=== PATIENT | female | born 1970 | race African-American/Black ===

== ENCOUNTER 2019-01-16 00:18 | Inpatient (IN) | payer OTHER ==
[2019-01-16] VITALS (8 sets, daily range): BP systolic 96–144; BP diastolic 47–90
[~2019-01-16] VITALS: Ht 162.6 cm; Wt 122.9 kg
[2019-01-16] MEDS ORDERED: HALLS3.2 MG (00:33)
[2019-01-16] MEDS ORDERED: COUGH AND COLD (00:33)
[2019-01-16 01:31] LABS: BASOPHILS 0.3 % (0.0-2.0); EOSINOPHILS 0.1 % (0.0-3.0); HEMATOCRIT 38.3 % (37.0-47.0); HEMOGLOBIN 12.7 gm/dL (12.0-15.0); LYMPHOCYTES 6.1 % (24.0-44.0); MCH 27.8 pg (26.0-34.0); MCHC 33.1 g/dL (28.0-37.0); MCV 83.8 fL (80.0-100.0); MONOCYTES 4.5 % (1.0-8.0); PLATELET COUNT 144 thou/uL (150-400); RBC 4.58 mil/uL (4.20-5.00); RDW 15.3 % (10.5-14.5); WBC 5.7 thou/uL (4.0-11.0)
[2019-01-16 01:53] LABS: CALCIUM 8.1 mg/dL (8.5-10.1); CREATININE 1.5 mg/dL (0.6-1.0); POTASSIUM 3.8 mmol/L (3.5-5.1)
[2019-01-16 01:59] LABS: ALBUMIN 3.2 g/dL (3.4-5.0); DIRECT BILIRUBIN 0.1 mg/dL (<0.1-0.3); TOTAL BILIRUBIN 0.4 mg/dL (<0.1-1.0); TOTAL PROTEIN 6.7 g/dL (6.4-8.2)
[2019-01-16 02:52] LABS: URINE BILIRUBIN NEGATIVE (Negative); URINE BLOOD TRACE (Negative); URINE CLARITY CLEAR; URINE COLOR YELLOW; URINE GLUCOSE-RANDOM* NEGATIVE (Negative); URINE KETONES NEGATIVE (Negative); URINE NITRITE-REFLEX NEGATIVE (Negative); URINE PROTEIN (DIPSTICK) NEGATIVE (Negative); URINE UROBILINOGEN 0.2 E.U./dl (0.2-1.0)
[2019-01-16 02:53] LABS: URINE LEUKOCYTES-REFLEX 1+ (Negative)
[2019-01-16 02:58] LABS: BACTERIA-REFLEX None Seen /HPF (None Seen); CASTS None Seen /LPF (None Seen); CRYSTALS None Seen /LPF (None Seen); MUCUS None Seen strn/LPF (None Seen); SQUAMOUS 0-3 Few /LPF (0-3); URINE RBC 0-2 Rare /HPF (0-2); URINE WBC-REFLEX 6-15 Few /HPF (0-5)
--- NOTE | 2019-01-16 03:15 | NUR ---
Pt. arrived to the unit from the emergency room accompanied by staff and spouse via stretcher. Admission assessment and history is completed. She c/o generalized pain, but refused po tramadol when offered. Up to the bathroom with stand by assistance.
--- NOTE | 2019-01-16 18:39 | NUR ---
PT A&OX4, VSS, LUNG RHYTHM REG WITH WHEEZES, NO DISTRESS, NO C/O OF PAIN AT THIS TIME. PT ON 3L OF O2. WILL CONTINUE TO MONITOR.
[2019-01-17 03:39] VITALS: BP 119/79
--- NOTE | 2019-01-17 04:12 | NUR ---
Pt. rested quietly at intervals during the night when checked on during frequent rounds. She c/o a headache and po pain med given (see emar) with some relief of pain. No c/o shortness of air.
[2019-01-17 05:05] LABS: CALCIUM 8.2 mg/dL (8.5-10.1); CREATININE 1.3 mg/dL (0.6-1.0); POTASSIUM 4.4 mmol/L (3.5-5.1)
[2019-01-17 08:01] VITALS: BP 118/65
[2019-01-17 14:18] VITALS: BP 115/75
--- NOTE | 2019-01-17 17:03 | NUR ---
PT A&OX4, VSS, NO SIGNS OF DISTRESS OR C/O SOA. PT HAS SHOWERED ON HER OWN, CALM AND COOPERATIVE. FAMILY HAS VISITED AND PT MORE INTERACTIVE. C/O OF MIGRAINE IN EARLY AM AND HAS BEEN RELIEVED WITH MEDICATION. WILL CONTINUE TO MONITOR.
[2019-01-17 19:40] VITALS: BP 137/84
--- NOTE | 2019-01-18 01:57 | NUR ---
Assumed care at 1845. Pt resting in bed with at bedside. She stated that she has been experiencing vaginal itching everytime she urinates. Notified she [employer] who suggested a onetime dose of fluconazole and to monitor. No identified needs at the moment. Will continue to monitor.
[2019-01-18 05:48] VITALS: BP 139/79
[2019-01-18 07:59] VITALS: BP 109/62
[2019-01-18 14:17] VITALS: BP 123/81
--- NOTE | 2019-01-18 15:30 | NUR ---
RD consult received. Pt with BMI 46.6=class III obesity. Admitted with influenza. Hx COPD, HTN. Taking po. Noted glucose level 192-no hx diabetes but on steroids and at risk for diabetes with obesity. Recommend accuchecks, may to place on carb controlled diet order. Otherwise low nutrition risk
[2019-01-18] MEDS ORDERED: OSELB75 PO (16:02)
[2019-01-18] MEDS ORDERED: CHANTIX1 EACH PO (16:03)
[2019-01-18] MEDS ORDERED: PREDNISONE 10 M10 MG PO (16:04)
[2019-01-18] MEDS ORDERED: VENTOLIN HFA 1818 GM INH (16:04)
[2019-01-18 16:16] VITALS: BP 123/81
== END 2019-01-18 17:42 | disposition home or self-care (01) | DRG 194 ==
LOC: ER 00:18 → 4W 01:54 → EROBS 01:54 → ER 02:19 → 4W 02:19
PROVIDERS: Emergency Medicine; Nurse Practitioner Family; ADMIT Hospitalist
DX: J10.1 Influenza due to other identified influenza virus with other respiratory manifestations (principal); N17.9 Acute kidney failure, unspecified; I10 Essential (primary) hypertension; J44.9 Chronic obstructive pulmonary disease, unspecified; R09.02 Hypoxemia; F17.210 Nicotine dependence, cigarettes, uncomplicated; Z79.899 Other long term (current) drug therapy; Z88.8 Allergy status to other drugs, medicaments and biological substances; Z71.6 Tobacco abuse counseling
CPT/HCPCS: 10040

== ENCOUNTER 2019-06-23 10:49 | Emergency (ER) | payer BC ==
[~2019-06-23] VITALS: Ht 162.6 cm; Wt 117.9 kg
[~2019-06-23 10:49] MED LIST: CHANTIX1 EACH PO; COUGH AND COLD; HALLS3.2 MG; OSELB75 PO; PREDNISONE 10 M10 MG PO; VENTOLIN HFA 1818 GM INH
[2019-06-23] MEDS ORDERED: ERYTHROMYCIN E3.5 G3 OPHTHALMIC (11:29)
[2019-06-23 11:38] VITALS: BP 148/102
== END 2019-06-23 11:38 | disposition home or self-care (01) ==
LOC: ER 10:49
DX: H01.004 Unspecified blepharitis left upper eyelid (principal); R22.9 Localized swelling, mass and lump, unspecified; F17.210 Nicotine dependence, cigarettes, uncomplicated; Z88.8 Allergy status to other drugs, medicaments and biological substances